=== PATIENT | male | born 1990 | race Caucasian/White ===

== ENCOUNTER 2019-09-30 22:32 | Emergency (ER) | payer BC ==
[~2019-09-30] VITALS: Ht 185.4 cm; Wt 84.4 kg
[2019-09-30 22:40] VITALS: Ht 185.4 cm; Wt 84.4 kg
[2019-10-01 00:13] VITALS: BP 146/88
== END 2019-10-01 00:13 | disposition home or self-care (01) ==
LOC: ED 22:32
DX: S92.511A Displaced fracture of proximal phalanx of right lesser toe(s), initial encounter for closed fracture (principal); W22.8XXA Striking against or struck by other objects, initial encounter; Y93.89 Activity, other specified; Y92.89 Other specified places as the place of occurrence of the external cause; Y99.8 Other external cause status